=== PATIENT | male | born 1985 | race Caucasian/White ===

== ENCOUNTER 2016-09-24 10:45 | Emergency (ER) | payer OTHER ==
[2016-09-24 11:33] VITALS: BP 119/76; PULSE 72; RESP 18; TEMP 97.5
--- NOTE | 2016-09-24 11:54 | ED ---
General Adult HPI - General Chief complaint: Upper Respiratory Infection Stated complaint: bebo x 3 days Time Seen by Provider: 09/24/16 11:30 Source: patient, RN notes reviewed Mode of arrival: ambulatory - History of Present Illness Initial comments: This is a 30-year-old male who presents emergency room today complaining of a cough for the last 3 days. Patient states he does have a little bit of sputum production but not a lot. Patient states he has noticed quite a bit of postnasal drip and he feels as though is congested yet he is able to breathe through his nose fine. Patient denies any facial tenderness. Patient states she's felt warm but has not had a fever when he is taking it. Patient states he has also had the chills on occasion. Patient states she has a history of asthma and has been using his inhaler. Patient also states he is a smoker. Patient denies any chest pain or shortness of breath worsened normal. Patient denies any abdominal pain patient denies nausea vomiting or diarrhea. - Related Data Previous Rx's Medication Instructions Recorded Azithromycin [Zithromax Tri-Stephen] 500 mg PO DAILY #3 tab 09/24/16 Allergies Allergy/AdvReac Type Severity Reaction Status Date / Time No Known Allergies Allergy Verified 09/24/16 11:33 Review of Systems ROS Statement: Those systems with pertinent positive or pertinent negative responses have been documented in the HPI. ROS Other: All systems not noted in ROS Statement are negative. Past Medical History Past Medical History: Asthma Additional Past Medical History / Comment(s): LESIONS ON INSIDE OF MOUTH HISTORY History of Any Multi-Drug Resistant Organisms: None Reported Past Surgical History: No Surgical Hx Reported Past Psychological History: No Psychological Hx Reported Smoking Status: Current every day smoker Past Alcohol Use History: None Reported Past Drug Use History: Marijuana General Exam - General Exam Comments Initial Comments: GENERAL: Patient is well-developed and well-nourished. Patient is nontoxic and well- hydrated and is in mild distress. ENT: Neck is soft and supple. No significant lymphadenopathy is noted. Oropharynx is clear. Moist mucous membranes. EYES: The sclera were anicteric and conjunctiva were pink and moist. Extraocular movements were intact and pupils were equal round and reactive to light. Eyelids were unremarkable. PULMONARY: Unlabored respirations. Good breath sounds bilaterally. No audible rales rhonchi or wheezing was noted. CARDIOVASCULAR: There is a regular rate and rhythm without any murmurs gallops or rubs. ABDOMEN: Soft and nontender with normal bowel sounds. No palpable organomegaly was noted. There is no palpable pulsatile mass. SKIN: Skin is clear with no lesions or rashes and otherwise unremarkable. NEUROLOGIC: Patient is alert and oriented x3. Cranial nerves II through XII are grossly intact. Motor and sensory are also intact. Normal speech, volume and content. Symmetrical smile. MUSCULOSKELETAL: Normal extremities with adequate strength and full range of motion. LYMPHATICS: No significant lymphadenopathy is noted PSYCHIATRIC: Normal psychiatric evaluation. Course Vital Signs 09/24/16 11:29 Temperature 97.5 F L Pulse Rate 72 Respiratory 18 Rate Blood Pressure 119/76 O2 Sat by Pulse 99 Oximetry Disposition Clinical Impression: Bronchitis Disposition: HOME SELF-CARE Condition: Good Instructions: Acute Bronchitis (ED) Prescriptions: Azithromycin [Zithromax Tri-Stephen] 500 mg PO DAILY #3 tab Referrals: None,Stated [Primary Care Provider] - 1-2 days Time of Disposition: 11:53
== END 2016-09-24 12:04 | disposition home or self-care (01) ==
LOC: EC 10:45
DX: J40 Bronchitis, not specified as acute or chronic (principal); F17.200 Nicotine dependence, unspecified, uncomplicated
CPT/HCPCS: 99283